=== PATIENT | female | born 1955 | race Caucasian/White ===

== ENCOUNTER 2016-12-16 14:07 | Emergency (ER) | payer MEDICAID, OTHER ==
[2016-12-16 14:28] VITALS: BMI 29.4
[2016-12-16 14:30] VITALS: BP 123/80; PULSE 87; TEMP 98.1
--- NOTE | 2016-12-16 15:25 | C.PDOC ---
History Of Present Illness 61 y/o female presents to the ED with complaints of left shoulder pain and swelling x1 week. Pt thinks pain is from lifting a 40lb pack of water bottles. Pain is worse with movement. She took tylenol once without relief. Denies numbness, weakness, chest pain, or any other complaints. Time Seen by Provider: 12/16/16 14:35 Chief Complaint (Nursing): Upper Extremity Problem/Injury History Per: Patient History/Exam Limitations: no limitations Onset/Duration Of Symptoms: Days Current Symptoms Are (Timing): Still Present Quality: "Pain" Severity: Moderate Exacerbating Factor(s): Movement Recent travel outside of the [place]: No Past Medical History Reviewed: Historical Data, Nursing Documentation, Vital Signs Vital Signs: Last Vital Signs Temp 98.1 F 12/16/16 14:28 Pulse 87 12/16/16 14:28 Resp 18 12/16/16 15:58 BP 123/80 12/16/16 14:28 Pulse Ox 99 12/16/16 15:58 - Medical History PMH: No Chronic Diseases Surgical History: Family History: States: Unknown Family Hx - Social History Hx Alcohol Use: No Hx Substance Use: No Review Of Systems Constitutional: Negative for: Fever Cardiovascular: Negative for: Chest Pain Musculoskeletal: Positive for: Shoulder Pain (left) Neurological: Negative for: Weakness, Numbness Physical Exam - Physical Exam Appears: Non-toxic, No Acute Distress Skin: Warm, Dry, No Rash, No Ecchymosis Head: Atraumatic, Normacephalic Eye(s): bilateral: Normal Inspection Neck: Normal ROM Chest: Symmetrical Cardiovascular: Rhythm Regular, No Murmur Respiratory: Normal Breath Sounds, No Rales, No Rhonchi, No Wheezing Extremity: Tenderness (anterior lateral left shoulder), Capillary Refill (<2 seconds), No Deformity, Swelling (mild swelling lateral left shoulder), Other ( left shoulder pain with abduction, no ecchymosis) Pulses: Left Radial: Normal Neurological/Psych: Oriented x3, Normal Speech, Normal Motor, Normal Sensation Gait: Steady ED Course And Treatment O2 Sat by Pulse Oximetry: 97 (room air) Pulse Ox Interpretation: Normal Medical Decision Making Medical Decision Making: Plan: * motrin * XRay XR negative for fracture or dislocation Arm sling was applied Patient to be discharged and given Rx Disposition Counseled Patient/Family Regarding: Diagnosis, Need For Followup, Rx Given - Disposition Referrals: [facility] [place] [Outside] [facility] [facility] [Outside] Disposition: HOME/ ROUTINE Disposition Time: 15:36 Condition: STABLE Additional Instructions: Vaya a taylor mdico o la clnica en 2-5 griffith sin falta, para mas evaluacin. [place] los medicamentos alejandro indicado. Volver a la leah de emergencia en cualquier momento si los sntomas persisten o empeoran. Prescriptions: Ibuprofen [Motrin] 600 mg PO Q8 #30 tab Instructions: Shoulder Bursitis (ED) Forms: [employer] (Libyan) Print Language: MALAYSIAN - POA Present On Arrival: None - Clinical Impression Clinical Impression: Shoulder bursitis - PA / PUBLIC HEALTH CLINICAL NURSE SPECIALIST / Resident Statement MD/DO has reviewed & agrees with the documentation as recorded. - Scribe Statement The provider has reviewed the documentation as recorded by the Torrey Ribeiro All medical record entries made by the Scribe were at my direction and personally dictated by me. I have reviewed the chart and agree that the record accurately reflects my personal performance of the history, physical exam, medical decision making, and the department course for this patient. I have also personally directed, reviewed, and agree with the discharge instructions and disposition.
--- NOTE | 2016-12-16 15:28 | RAD ---
PROCEDURE: Radiographs of the Left Shoulder HISTORY: pain to shoulder s.p lifting injury, no fall COMPARISON: None available. FINDINGS: BONES: No acute displaced fracture. The distal clavicle and underlying ribs appear intact. JOINTS: No acute dislocation. SOFT TISSUES: Soft tissue swelling. No evidence of radiopaque foreign body. IMPRESSION: Soft tissue swelling. No acute displaced fracture or dislocation evident. If symptoms persist or if there is continued clinical concern, x-ray follow-up in 7-10 days should be considered.
[2016-12-16 16:14] VITALS: RESP 18
[2016-12-16 18:21] VITALS: O2SAT 97
== END 2016-12-16 16:14 | disposition home or self-care (01) ==
LOC: C.ER 14:07
DX: M75.52 Bursitis of left shoulder (principal)

== ENCOUNTER 2018-03-19 12:22 | Emergency (ER) | payer MEDICAID, OTHER ==
[2018-03-19 12:32] VITALS: BMI 26.9
[2018-03-19 12:34] VITALS: BP 128/71; PULSE 93; RESP 18; TEMP 97.7; O2SAT 99
[2018-03-19 13:00] LABS: SQUAMOUS EPITHIAL < 1 /hpf (0-5); URINE BACTERIA RARE (<OCC); URINE BILIRUBIN NEGATIVE (NEGATIVE); URINE BLOOD NEGATIVE (NEGATIVE); URINE CLARITY Clear (Clear); URINE COLOR Straw (YELLOW); URINE GLUCOSE (UA) 3+ mg/dL (Normal); URINE LEUKOCYTE ESTERASE NEG Leu/uL (Negative); URINE PROTEIN NEGATIVE (NEGATIVE); URINE UROBILINOGEN NORMAL mg/dL (0.2-1.0)
--- NOTE | 2018-03-19 13:51 | C.PDOC ---
History Of Present Illness 62 y/o female presents to the ED complaining of 3 weeks of mild dysuria associated with left lower back discomfort and urinary frequency. Otherwise she denies any vaginal bleeding, vaginal discharge, abdominal pain, fevers, or other complaints. Patient reports current symptoms feel similar to prior UTI. States she feels hot sometimes. Time Seen by Provider: 03/19/18 12:38 Chief Complaint (Nursing): Fever History Per: [employer] (#[id number]) History/Exam Limitations: no limitations Onset/Duration Of Symptoms: Days Current Symptoms Are (Timing): Still Present Past Medical History Reviewed: Historical Data, Nursing Documentation, Vital Signs Vital Signs: Last Vital Signs Temp 97.7 F 03/19/18 12:32 Pulse 93 H 03/19/18 12:32 Resp 18 03/19/18 12:32 BP 128/71 03/19/18 12:32 Pulse Ox 99 03/19/18 12:32 Surgical History: Family History: States: Unknown Family Hx - Social History Hx Alcohol Use: No Hx Substance Use: No - Immunization History Hx Tetanus Toxoid Vaccination: No Hx Influenza Vaccination: No Hx Pneumococcal Vaccination: No Review Of Systems Constitutional: Positive for: Fever (tactile) Gastrointestinal: Negative for: Vomiting, Abdominal Pain, Diarrhea Genitourinary: Positive for: Dysuria, Frequency. Negative for: Vaginal Discharge, Vaginal Bleeding Musculoskeletal: Positive for: Back Pain Neurological: Negative for: Weakness, Numbness Physical Exam - Physical Exam Appears: Non-toxic, No Acute Distress Skin: Normal Color, Warm Head: Normacephalic Eye(s): bilateral: PERRL Neck: Normal ROM, Supple Chest: Symmetrical Cardiovascular: Rhythm Regular, No Murmur Respiratory: Normal Breath Sounds, No Accessory Muscle Use Gastrointestinal/Abdominal: Bowel Sounds (active), Soft, No Tenderness, No Distention, No Guarding Back: No CVA Tenderness, No Vertebral Tenderness Extremity: Bilateral: Atraumatic, Normal ROM Neurological/Psych: Oriented x3, Normal Speech Gait: Steady ED Course And Treatment O2 Sat by Pulse Oximetry: 99 (RA) Pulse Ox Interpretation: Normal Against Medical Advice - AMA Patient Left Against Medical Advice: The patient declines admission to the hospital and wishes to leave the Emergency Department. This action is against my medical advice. This decision was made with informed refusal. The patient was told that admission to the hospital is necessary. Explanation of the reasons why were discussed. The risks of leaving were explained to the patient and include, but are not limited to, worsening of known or currently unknown conditions, permanent disability and from undiagnosed or untreated conditions. The patient has the capacity to make this informed decision and understands my explanation of the current medical problem and risks of leaving. The patient voluntarily accepts these risks and signed an AMA form documenting our conversation. The patient was given the opportunity to ask questions and reconsider. The patient was encouraged to return to the Emergency Department at any time for further care. Medical Decision Making Medical Decision Making: Initial Plan: UA and urine culture sent to the lab. Progress: UA negative, patient found to have +3 glucose. Finger stick shows glucose of 430. Pt declines blood work and admission. Chooses to sign out AMA. Michael spoke to patient in Hungarian to ensure understanding of AMA policy. Will d/c patient with prescription for metformin. Advised pt to go downstairs and make soonest appointment for follow up with the clinic. Disposition - Disposition Referrals: [facility] [Outside] Disposition: AGAINST MEDICAL ADVICE Condition: STABLE Additional Instructions: Por favor, vaya a la clnica mdica despus de salir de la leah de emergencias para hacer la asia ms pronto para el seguimiento. [place] papeles de an para que pueda hacer nathaniel asia. [place] los medicamentos segn lo prescrito. Siga la dieta de los diabticos, evite los azcares. caramelo. soda. Regrese a la leah de emergencias para cualquier sntoma relacionado, aumento de hambre o sed, mareos o aturdimiento. Please go to medical clinic after leaving ER to make soonest appointment for follow up. Show them your discharge papers so you can make in appointment. Take medications as prescribed. Follow diabetic diet- avoid sugars. candy. soda. Return to ER for any concerning symptoms, increased hunger or thirst, dizziness or lightheadedness. Prescriptions: MetFORMIN [glucoPHAGE] 500 mg PO BID #60 tab Instructions: Diabetes Diet , Diabetes in Older Adults Forms: Gen Discharge Inst Hungarian, [employer] (Hungarian) Print Language: IRISH - Clinical Impression Clinical Impression: Diabetes mellitus, new onset, Left against medical advice - PA / TAXICAB COORDINATOR / Resident Statement MD/DO has reviewed & agrees with the documentation as recorded. - Scribe Statement The provider has reviewed the documentation as recorded by the Scribe (Zoila Li) All medical record entries made by the Scribe were at my direction and personally dictated by me. I have reviewed the chart and agree that the record accurately reflects my personal performance of the history, physical exam, medical decision making, and the department course for this patient. I have also personally directed, reviewed, and agree with the discharge instructions and disposition.
--- NOTE | 2018-03-19 13:55 | C.PDOC ---
Time Seen by Provider: 03/19/18 12:38 Chief Complaint (Nursing): Fever Past Medical History Vital Signs: Last Vital Signs Temp 97.7 F 03/19/18 12:32 Pulse 93 H 03/19/18 12:32 Resp 18 03/19/18 12:32 BP 128/71 03/19/18 12:32 Pulse Ox 99 03/19/18 12:32 Surgical History: Family History: States: Unknown Family Hx - Social History Hx Alcohol Use: No Hx Substance Use: No - Immunization History Hx Tetanus Toxoid Vaccination: No Hx Influenza Vaccination: No Hx Pneumococcal Vaccination: No ED Course And Treatment O2 Sat by Pulse Oximetry: 99 Disposition Counseled Patient/Family Regarding: Diagnosis, Need For Followup, Rx Given - Disposition Referrals: [facility] [Outside] Disposition: AGAINST MEDICAL ADVICE Disposition Time: 13:50 Condition: STABLE Additional Instructions: Por favor, vaya a la clnica mdica despus de salir de la leah de emergencias para hacer la asia ms pronto para el seguimiento. [place] papeles de an para que pueda hacer nathaniel asia. [place] los medicamentos segn lo prescrito. Siga la dieta de los diabticos, evite los azcares. caramelo. soda. Regrese a la leah de emergencias para cualquier sntoma relacionado, aumento de hambre o sed, mareos o aturdimiento. Please go to medical clinic after leaving ER to make soonest appointment for follow up. Show them your discharge papers so you can make in appointment. Take medications as prescribed. Follow diabetic diet- avoid sugars. candy. soda. Return to ER for any concerning symptoms, increased hunger or thirst, dizziness or lightheadedness. Prescriptions: MetFORMIN [glucoPHAGE] 500 mg PO BID #60 tab Instructions: Diabetes Diet , Diabetes in Older Adults Forms: Gen Discharge Inst Sierra Leonean, [employer] (Sierra Leonean) - Clinical Impression Clinical Impression: Diabetes mellitus, new onset
== END 2018-03-19 13:47 | disposition left against medical advice (07) ==
LOC: C.ER 12:22
DX: E11.9 Type 2 diabetes mellitus without complications (principal)